=== PATIENT | female | born 1965 | race Caucasian/White ===

== ENCOUNTER 2017-09-22 16:30 | Emergency (ER) | payer MEDICAID ==
[2017-09-22 16:31] VITALS: BP 127/75; PULSE 83; RESP 16; TEMP 99.3; O2SAT 99
[2017-09-22] MEDS ORDERED: BENZ100 PO (17:19)
--- NOTE | 2017-09-22 17:19 | PD ---
HPI Chief Complaint: ENT Complaint Time Seen by Provider: 17:09 Travel History International Travel<30 days: No Contact w/Intl Traveler<30days: No Traveled to known affect area: No History of Present Illness HPI 52-year-old female here with nasal congestion, sore throat, cough, body ache times one day. Multiple family members at home with similar symptoms. Symptoms severity is mild. Patient has not tried any etlx-ndp-[id number] medication for symptom relief. She denies headache, neck pain, chest pain, shortness of breath, abdominal pain, nausea vomiting or diarrhea. No aggravating or alleviating factors. PFSH Past Medical History Medical History: Denies Significant Hx Social History Tobacco Use: No Review of Systems Except as stated in HPI: all other systems reviewed are Neg General / Constitutional: No: Fever HENT: Positive: Sore Throat, Congestion Respiratory: Positive: Cough Physical Exam Narrative GENERAL: Alert, well-appearing female. SKIN: Warm and dry. No rash HEAD: Normocephalic. EYES: Pupils equal round and reactive. No injection or drainage. THROAT: Mild pharyngeal erythema. No tonsillar hypertrophy. No exudate. NECK: Supple, trachea midline. No lymphadenopathy. No meningismus CARDIOVASCULAR: Regular rate and rhythm without murmurs, gallops, or rubs. RESPIRATORY: Breath sounds equal bilaterally. No accessory muscle use. GASTROINTESTINAL: Abdomen soft, non-tender, nondistended. MUSCULOSKELETAL: No cyanosis, or edema. BACK: Nontender without obvious deformity. No CVA tenderness. Data Data Last Documented VS Vital Signs Date Time Temp Pulse Resp B/P (MAP) Pulse Ox O2 Delivery O2 Flow Rate FiO2 09/22/17 16:31 99.3 83 16 127/75 (92) [address] [facility] Medical Decision Making Medical Screen Exam Complete: Yes Emergency Medical Condition: Yes Differential Diagnosis Influenza, viral illness, bronchitis, pneumonia Narrative Course 52-year-old female with no past medical history here with viral-like illness. Symptom severity is mild. Her vital signs are stable. She is nontoxic- appearing. She is well-hydrated. I offered to test for flu patient declined. Symptomatically was discussed with patient. She is instructed to take over-the- counter Motrin and Tylenol. Tessalon Perles will be prescribed for cough as needed. Stay well hydrated. Follow-up with the [facility]. Diagnosis Primary Impression: Viral illness Referrals: [facility] Additional Instructions: Stay well hydrated by drinking plenty of fluids. Take hmny-teg-kitepoj ibuprofen 600 mg every 6 hours as needed for pain and fever. Take begf-fdx-wqyevtu Tylenol 650 milligrams every 6 hours as needed for pain and fever Take the Tessalon Perles as needed for cough. Scripts Benzonatate (Tessalon Perles) 100 Mg Cap 100 MG PO TID Y for COUGH for 5 Days, CAP 0 Refills Prov: Anabel Velazquez 09/22/17 Disposition: 01 DISCHARGE HOME Condition: Stable Anabel Velazquez Sep 22, 2017 17:19
== END 2017-09-22 17:37 | disposition home or self-care (01) ==
LOC: NEPK 16:30
DX: B34.9 Viral infection, unspecified (principal)
CPT/HCPCS: 99283

== ENCOUNTER 2018-01-23 22:18 | Emergency (ER) | payer MEDICAID ==
[~2018-01-23] VITALS: Ht 157.5 cm; Wt 80.0 kg
[~2018-01-23 22:18] MED LIST: BENZ100 PO
[2018-01-23 22:26] VITALS: BP 136/64; PULSE 73; RESP 16; TEMP 98.7; O2SAT 100
--- NOTE | 2018-01-23 22:42 | PD ---
HPI Chief Complaint: Back/ Neck Pain or Injury Time Seen by Provider: 22:42 Travel History International Travel<30 days: No Contact w/Intl Traveler<30days: No Traveled to known affect area: No History of Present Illness HPI 52-year-old female came to the emergency room with history of mid back pain for past 2-3 days. Patient says is progressively worsening. She has not injured her back or cannot think of what could have triggered this. Patient has never had this kind of pain before. She says pain is worse upon movement. No radiation of the pain. Pain is midline. No history of fever or chills. No history of hematuria or dysuria. No history of chest pain. No history of shortness of breath. Vital signs are stable. PFSH Past Medical History Narrative Medical List of his past medical, surgical, social and family history reviewed from the nursing note. Medical History: Denies Significant Hx Cancer: Yes Tetanus Vaccination: > 5 Years Influenza Vaccination: No ?: Not Past Surgical History Section: Yes (X3) Social History Alcohol Use: No Tobacco Use: No Substance Use: No Allergies-Medications (Allergen,Severity, Reaction): Coded Allergies: penicillin G (Verified Allergy, Severe, 01/23/18) FAINT, RASH Comments List of his allergies reviewed from the nursing note Reported Meds & Prescriptions Reported Meds & Active Scripts Active Flexeril (Cyclobenzaprine HCl) 5 Mg Tab 5 Mg PO TID Ibuprofen 600 Mg Tab 600 Mg PO Q6H PRN Macrobid (Nitrofurantoin Monoh/Nitrofur Macro) 100 Mg Cap 100 Mg PO BID 5 Days Narrative Medication List of his home medications reviewed from the nursing note. Review of Systems Except as stated in HPI: all other systems reviewed are Neg Musculoskeletal: Positive: Pain Physical Exam Narrative GENERAL: Awake, alert, moderate distress SKIN: Focused skin assessment warm/dry. HEAD: Atraumatic. Normocephalic. EYES: Pupils equal and round. No scleral icterus. No injection or drainage. ENT: No nasal bleeding or discharge. Mucous membranes pink and moist. NECK: Trachea midline. No JVD. CARDIOVASCULAR: Regular rate and rhythm. No murmur appreciated. RESPIRATORY: No accessory muscle use. Clear to auscultation. Breath sounds equal bilaterally. GASTROINTESTINAL: Abdomen soft, non-tender, nondistended. Hepatic and splenic margins not palpable. MUSCULOSKELETAL: No obvious deformities. No clubbing. No cyanosis. No edema. Paraspinal spasm in the thoracic area. No point tenderness of the spine NEUROLOGICAL: Awake and alert. No obvious cranial nerve deficits. Motor grossly within normal limits. Normal speech. PSYCHIATRIC: Appropriate mood and affect; insight and judgment normal. Data Data Last Documented VS Vital Signs Date Time Temp Pulse Resp B/P (MAP) Pulse Ox O2 Delivery O2 Flow Rate FiO2 01/23/18 22:26 98.7 73 16 136/64 (88) 100 Orders Orders Morphine Inj (Morphine Inj) (01/23/18 23:00) Ketorolac Inj (Toradol Inj) (01/23/18 23:00) Orphenadrine Inj (Norflex Inj) (01/23/18 23:00) Urinalysis - C+S If Indicated (01/23/18 22:54) Spine, Thoracic-Ap/Lat/Sw(3vw) (01/23/18 ) Urine Culture (01/23/18 23:15) Nitrofurantoin Monohyd Macrocr (Macrobid (01/24/18 00:00) Ed Discharge Order (01/23/18 23:57) Labs Laboratory Tests Test 01/23/18 23:15 Urine Color LIGHT-YELLOW Urine Turbidity CLEAR Urine pH 5.5 Urine Specific [place] 1.016 Urine Protein NEG mg/dL Urine Glucose (UA) NEG mg/dL Urine Ketones NEG mg/dL Urine Occult Blood NEG Urine Nitrite NEG Urine Bilirubin NEG Urine Urobilinogen LESS THAN 2.0 MG/DL Urine Leukocyte Esterase NEG Urine RBC LESS THAN 1 /hpf Urine WBC 2 /hpf Urine Squamous Epithelial Cells <1 /hpf Urine Bacteria MOD /hpf Microscopic Urinalysis Comment CULTURE INDICATED MDM Medical Decision Making Medical Screen Exam Complete: Yes Emergency Medical Condition: Yes Medical Record Reviewed: Yes Differential Diagnosis Compression fracture, musculoskeletal pain, radiculopathy Narrative Course 12:12 AM patient was medicated for pain and muscle relaxation. X-ray was suggestive of DJD. UA was positive for possible UTI. She was given Macrobid. I discussed all these test results with her. Patient will be discharged home on prescription. Upon reassessment patient says the pain is there but much better than before. She is comfortable going home. Procedures EKG Prior to Arrival: No Diagnosis Primary Impression: Degenerative disc disease, thoracic Additional Impressions: UTI (urinary tract infection) Qualified Codes: N39.0 - Urinary tract infection, site not specified Back pain Qualified Codes: M54.6 - Pain in thoracic spine Referrals: Primary Care Physician 1 week Additional Instructions: Return to the ER if condition worsens or any other new concerns. Otherwise take the medication as per the prescription direction. The muscle relaxant will make you groggy and you should not be driving while on it. Follow-up with your primary care. Med/Other Pt SpecificInfo: Prescription(s) given Scripts Cyclobenzaprine (Flexeril) 5 Mg Tab 5 MG PO TID for Muscle Spasm, #15 TAB 0 Refills Prov: Jo Williamson MD 01/23/18 Ibuprofen (Ibuprofen) 600 Mg Tab 600 MG PO Q6H Y for Pain/Inflammation, #40 TAB 0 Refills Prov: Jo Williamson MD 01/23/18 Nitrofurantoin Monohydrate Macrocrystals (Macrobid) 100 Mg Cap 100 MG PO BID for Infection for 5 Days, #10 CAP 0 Refills Prov: Jo Williamson MD 01/23/18 Disposition: 01 DISCHARGE HOME Condition: Stable Jo Williamson MD Jan 23, 2018 22:42
[2018-01-23] MEDS ORDERED: KETOROLAC TROMETHAMINE 60 MG/2 ML (IM) VIAL IM ONE (23:00)
[2018-01-23] MEDS ORDERED: ORPHENADRINE INJ 60 MG/2 ML AMP IM ONE (23:00)
[2018-01-23] MEDS ORDERED: MORPHINE SULFATE 8 MG/ML INJ IM ONE (23:00)
--- NOTE | 2018-01-23 23:26 | RADRPT ---
EXAM DATE/TIME: 01/23/2018 23:09 [facility] COMPARISON: No previous studies available for comparison. INDICATIONS : Severe upper back pain for two days without any history of trauma. MEDICAL HISTORY : None. SURGICAL HISTORY : None. ENCOUNTER: Initial ACUITY: 2 days PAIN SCORE: 10/10 LOCATION: Bilateral upper back FINDINGS: AP and lateral views of the thoracic spine show an exaggeration to the kyphosis. Diffuse mild disc sp kt narrowing and mild anterior osteophyte production most pronounced within the inferior levels. No acute fracture or dislocation. CONCLUSION: Mild diffuse degenerative changes. Oumar Roe Jr., MD on January 23, 2018 at 23:24 Board Certified Radiologist. This report was verified electronically.
[2018-01-23 23:53] LABS: BACTERIA, URINE MOD /hpf; BILIRUBIN, URINE NEG (NEG); BLOOD, URINE NEG (NEG); GLUCOSE,URINE NEG (NEG); KETONE, URINE NEG (NEG); NITRITE,URINE NEG (NEG); PH, URINE 5.5 (5.0-8.5); SQUAMOUS EPITHELIAL CELL URINE <1 /hpf (0-5); URINE COLOR LIGHT-YELLOW (YELLW/STRAW); URINE LEUKOCYTE ESTERASE NEG (NEG)
[2018-01-23] MEDS ORDERED: CYCL5TAB PO (23:59)
[2018-01-23] MEDS ORDERED: IBUP-232 PO (23:59)
[2018-01-23] MEDS ORDERED: MACR100C2 PO (23:59)
[2018-01-24] MEDS ORDERED: NITROFURANTOIN MONOHYD MACROCR 100 MG CAP PO ONE
== END 2018-01-24 00:31 | disposition home or self-care (01) ==
LOC: NEPD 22:18
DX: M51.34 Other intervertebral disc degeneration, thoracic region (principal); N39.0 Urinary tract infection, site not specified; M54.6 Pain in thoracic spine
CPT/HCPCS: 72072; 81001; 87086; 96372; 99284; J1885; J2270; J2360